=== PATIENT | female | born 1945 | race Asian ===

== ENCOUNTER 2024-05-30 17:48 | Emergency (ER) | payer MEDICAID, OTHER ==
[~2024-05-30] VITALS: Ht 152.4 cm; Wt 52.6 kg
[2024-05-30] MEDS: IPRATROPIUM BROMIDE 0.5 MG/2.5 ML NEBU NEB ONE (18:11)
[2024-05-30] MEDS: ALBUTEROL SULFATE 2.5 MG/3 ML NEBU NEB ONE (18:11)
[2024-05-30 18:13] VITALS: O2SAT 96
[2024-05-30] MEDS ORDERED: IPRATROPIUM BROMIDE 0.5 MG/2.5 ML NEBU ONE (18:14)
[2024-05-30] MEDS ORDERED: ALBUTEROL SULFATE 2.5 MG/3 ML NEBU ONE (18:14)
[2024-05-30 18:20] LABS: BASOPHILS # (AUTO) 0.1 K/UL (0.0-0.2); BASOPHILS % (AUTO) 0.9 % (0.0-2.0); DIFFERENTIAL COMMENT 1; EOSINOPHILS # (AUTO) 0.2 K/uL (0.0-0.7); EOSINOPHILS % (AUTO) 3.4 % (0.0-7.0); HEMATOCRIT 31.8 % (31.2-41.9); HEMOGLOBIN 10.3 g/dL (10.9-14.3); LYMPHOCYTES # (AUTO) 1.1 K/uL (0.8-4.8); LYMPHOCYTES % (AUTO) 18.1 % (20.5-51.5); MEAN CORPUSCULAR HEMOGLOBIN 30.6 uug (24.7-32.8); MEAN CORPUSCULAR HGB CONC 33 g/dL (32.3-35.6); MEAN CORPUSCULAR VOLUME 94.1 fL (75.5-95.3); MONOCYTES # (AUTO) 0.5 K/uL (0.1-1.30); MONOCYTES % (AUTO) 7.5 % (0.0-11.0); NEUTROPHILS # (AUTO) 4.4 K/uL (1.8-8.9); NEUTROPHILS % (AUTO) 70.1 % (38.5-71.5); PLATELET COUNT (AUTO) 236 K/uL (179-408); RED BLOOD CELL COUNT(AUTO) 3.37 MIL/uL (3.63-4.92); WHITE BLOOD COUNT (AUTO) 6.3 K/uL (3.8-11.8)
[2024-05-30 18:26] LABS: CALCIUM 8.7 mg/dL (8.5-10.1); CARBON DIOXIDE 27 mmol/L (21-32); CHLORIDE 105 mmol/L (98-107); CREATININE 0.9 mg/dL (0.6-1.3); GLUCOSE 205 mg/dL (74-106); POTASSIUM 3.1 mmol/L (3.5-5.1); SODIUM SERUM 141 mmol/L (136-145); UREA NITROGEN, BLOOD 14 mg/dL (7-18)
[2024-05-30] MEDS ORDERED: METOPROLOL TARTRATE 5 MG/5 ML VIAL IVP ONE (18:28)
[2024-05-30] MEDS ORDERED: NITROGLYCERIN OINT 1 GM PACKET TP ONE (18:28)
[2024-05-30] MEDS ORDERED: MAGNESIUM SULFATE/D5W 200 ML ONE (18:28)
[2024-05-30] MEDS: METOPROLOL TARTRATE 5 MG/5 ML VIAL IVP ONE (18:30)
[2024-05-30] MEDS: MAGNESIUM SULFATE 2 GM in IV DEXTROSE 5% 100 ML IV ONE (18:30)
[2024-05-30] MEDS: NITROGLYCERIN OINT 1 GM PACKET TP ONE (18:30)
[2024-05-30 18:39] LABS: NT-PRO BNP 181 pg/mL (0-125)
[2024-05-30 18:40] VITALS: O2SAT 99
[2024-05-30] MEDS ORDERED: SWABABLE VALVE TRANSFER SET EA MC ONE (19:05)
[2024-05-30] MEDS ORDERED: IV NORMAL SALINE 250 ML IV ONE (19:05)
[2024-05-30] MEDS ORDERED: IOHEXOL 350 100 ML INFUS..BTL ONE (19:05)
[2024-05-30] MEDS ORDERED: ACETAMINOPHEN 500 MG TABLET ONE (20:04)
[2024-05-30] MEDS: ACETAMINOPHEN 500 MG TABLET PO ONE (20:06)
[2024-05-30 21:24] LABS: ABG BASE EXCESS 0.1 mmol/L (-2.0-3.0); ABG HCO3 23.7 mmol/L (21.0-28.0); ABG PH 7.449 (7.350-7.450); ABG PO2 70.4 mmHg (83.0-108.0); ABG SITE RIGHT RADIAL; ABG TOTAL HEMOGLOBIN 11.5 G/dL (12.0-16.0); COHb 0.3 % (0.5-1.5); MetHb 0.2 % (0.0-1.5); O2Hb 93.7 % (94.0-98.0)
[2024-05-30 22:59] LABS: LACTIC ACID 3.4 mmol/L (0.4-2.0)
[2024-05-30 23:34] LABS: BILIRUBIN,DIRECT 0.1 mg/dL (0.0-0.2); BILIRUBIN,TOTAL 0.4 mg/dL (0.2-1.0)
[2024-05-31 02:38] VITALS: BP 128/63; O2SAT 97
[2024-05-31] MEDS ORDERED: ONDANSETRON 4 MG/2 ML VIAL ONE (06:16)
[2024-05-31] MEDS ORDERED: MORPHINE SULFATE 2 MG/1 ML DISP.SYRIN ONE (06:17)
[2024-05-31] MEDS: MORPHINE SULFATE 2 MG/1 ML DISP.SYRIN IV ONE (06:25)
[2024-05-31] MEDS: ONDANSETRON 4 MG/2 ML VIAL IV STA (06:25)
[2024-05-31] MEDS ORDERED: ACETAMINOPHEN 500 MG TABLET ONE (06:34)
[2024-05-31] MEDS: ACETAMINOPHEN 500 MG TABLET PO STA (06:39)
[2024-05-31 07:42] VITALS: O2SAT 97
== END 2024-05-31 08:23 | disposition admitted as inpatient to this hospital (09) ==
LOC: ER 17:50 → UNDOADMIN 05-31 01:15 → TELE3 05-31 01:15 → ER 05-31 08:23
DX: I71.019 Dissection of thoracic aorta, unspecified (principal); J45.909 Unspecified asthma, uncomplicated; Z88.1 Allergy status to other antibiotic agents; Z88.2 Allergy status to sulfonamides
CPT/HCPCS: 99285; 96365; 71275; 71045; 96366; 96375; 80048; 82247; 82248; 83880; 85025; 85379; 84484 ×2; 36415; 94640; 82803; 93005; 83605 ×2; 36600; J3475 ×2; J3490; Q9967; J2270; 94760; A4606; A4663; A9150; J2405; J3590